=== PATIENT | female | born 1950 | race Caucasian/White ===

== ENCOUNTER 2016-06-28 14:39 | Inpatient (IN) | payer MEDICARE, OTHER ==
[~2016-06-28] VITALS: Ht 162.6 cm; Wt 82.1 kg
[2016-06-29] MEDS ORDERED: LEVO100T5 PO (13:20)
[2016-06-29] MEDS ORDERED: PROZ40CA PO (13:20)
[2016-06-29] MEDS ORDERED: RANI150T PO (13:20)
[2016-06-29] MEDS ORDERED: LAMO25TA PO (13:20)
[2016-06-29] MEDS ORDERED: HYDR-3580 PO (13:20)
[2016-06-29] MEDS ORDERED: LAMO200T PO (13:20)
[2016-06-29] MEDS ORDERED: LORA1TAB12 PO (13:20)
[2016-06-29] MEDS ORDERED: XOPEAER4 INH (13:25)
[2016-06-29] MEDS ORDERED: ADVA250A INH (13:25)
[2016-07-02] MEDS ORDERED: PHENYLEPH/NS 1000 MCG/10 ML SYR IV ONE (12:00)
[2016-07-02] MEDS ORDERED: NEOSTIGMINE 3 MG/3 ML SYR IV ONE (12:00)
[2016-07-02] MEDS ORDERED: ONDANSETRON HCL 4 MG/2 ML VIAL IV PUSH ONE (12:00)
[2016-07-02] MEDS ORDERED: PROPOFOL 200 MG/20 ML AMP IV ONE (12:00)
[2016-07-02] MEDS ORDERED: ePHEDrine/NS 25 MG/5 ML SYR IV ONE (12:00)
[2016-07-02] MEDS ORDERED: VENTAER INH (12:57)
[2016-07-02 12:59] VITALS: BP 130/83; PULSE 85; RESP 16; TEMP 97.6; O2SAT 99
[2016-07-02] MEDS ORDERED: ceFAZolin 2 GM PREMIX 50 ML IV SCH (13:00)
[2016-07-02] MEDS ORDERED: CHLORHEXIDINE GLUCONATE 4% SOLN 120 ML BTL TOP SCH (13:00)
[2016-07-02] MEDS ORDERED: SODIUM CHLORID 0.9% 500 ML IV SCH (13:30)
[2016-07-02] MEDS ORDERED: METOPROLOL TARTRATE 25 MG TAB PO PRN (13:30)
[2016-07-02] MEDS ORDERED: INSULIN HUMAN REGULAR 1,000 UNITS/10 ML VIAL SQ PRN (13:30)
[2016-07-02] MEDS ORDERED: LACTATED RINGER'S 1000 ML IV SCH (13:30)
[2016-07-02] MEDS ORDERED: ACETAMINOPHEN 1000 MG/100 ML VIAL IV ONE (13:40)
[2016-07-02] MEDS ORDERED: MIDAZOLAM HCL 2 MG/2 ML VIAL ONE (14:39)
[2016-07-02] MEDS ORDERED: DICLOFENAC SODIUM 37.5 MG/ML VIAL IV PUSH ONE (14:44)
[2016-07-02] MEDS ORDERED: GENTAMICIN SULFATE 80 MG/2 ML VIAL ONE (14:47)
[2016-07-02] MEDS ORDERED: Post-op Orders (for Pharmacy) MISC XX ONE (16:15)
[2016-07-02] MEDS ORDERED: ALBUTEROL SULFATE 90 MCG/ACT HFA 8 GM INHALER INH PRN (16:15)
[2016-07-02] MEDS ORDERED: SODIUM CHLORIDE 0.9% FLUSH 5 ML FLUSH IVF PRN (16:15)
[2016-07-02] MEDS ORDERED: BEDSIDE COMMODE1 MI1 (16:22)
--- NOTE | 2016-07-02 16:24 | HHI.FF ---
Face to Face Verification Diagnosis: (1) Femoral neck fracture Physical Therapy Gait training, Transfer training, bed to chair Hip: Hip fracture, Other (20% wt bearing right lower extremity ), Protocol: Right Nursing RN Days per Week: 3 x Week(s): 2 Nursing: Dressing changes (clean incision with alcohol and apply dry sterile dressing ) Additional Instructions Pt/INR q Saturday and , call or text results to Dulce [phone] I have seen patient Mihaela Alexandra on 07/02/16. My clinical findings support the need for the requested home health care services because: High risk of falls I certify that my clinical findings support that this patient is homebound because: Post-op weakness Unsteady gait/balance Carlos Strange MD Jul 02, 2016 16:23
--- NOTE | 2016-07-02 16:26 | RADRPT ---
EXAM DATE/TIME: 07/02/2016 15:19 [facility] COMPARISON: No previous studies available for comparison. INDICATIONS : Right hip pain Hardware placement MEDICAL HISTORY : None. SURGICAL HISTORY : None. ENCOUNTER: Initial ACUITY: 1 day PAIN SCORE: Non-responsive. LOCATION: Right Hip FINDINGS: Two cortical lag screws are seen bridging the femoral neck. Alignment is anatomic. CONCLUSION: Anatomic alignment. Emiliano Emanuel MD FACR on July 02, 2016 at 16:13 Board Certified Radiologist. This report was verified electronically.
[2016-07-02] MEDS ORDERED: fentaNYL CITRATE 250 MCG/5 ML AMP ONE (16:37)
[2016-07-02] MEDS ORDERED: DO NOT ADM ANY ANTICOAGULANT DRUGS XX PRN (16:38)
[2016-07-02] MEDS ORDERED: *HYDROmorphone PF 1 MG VIAL PERIprocedural Use ONLY ONE ×3 (16:38→17:17)
[2016-07-02] MEDS ORDERED: LACTATED RINGER'S 1000 ML INJ 1,000 ML IV SCH (17:00)
[2016-07-02] MEDS ORDERED: ALUMINUM/MAGNESIUM/SIMETH 30 ML CUP PO PRN (17:00)
[2016-07-02] MEDS ORDERED: ONDANSETRON HCL 4 MG/2 ML VIAL IVP PRN (17:00)
[2016-07-02] MEDS ORDERED: ACETAMINOPHEN/HYDROcodone 325 MG/7.5 MG TAB PO PRN (17:00)
[2016-07-02 18:07] VITALS: BP 94/69; PULSE 90; RESP 18; TEMP 96.8; O2SAT 100
[2016-07-02] MEDS: HYDROmorphone HCL PF 2 MG/ML VIAL IV PRN (19:03)
[2016-07-02 19:22] VITALS: O2SAT 100
[2016-07-02] MEDS: SODIUM CHLORIDE 0.9% FLUSH 5 ML FLUSH IVF SCH (20:19)
[2016-07-02] MEDS: FAMOTIDINE 20 MG TAB PO SCH (20:19)
[2016-07-02] MEDS: BUDESONIDE-FORMOTEROL 160/4.5 MCG INHALER INH SCH (20:20)
[2016-07-02] MEDS ORDERED: FLUoxetine HCL 20 MG CAP PO SCH (21:00)
[2016-07-02] MEDS ORDERED: LORazepam 1 MG TAB PO SCH (21:00)
[2016-07-02] MEDS: ACETAMINOPHEN/HYDROcodone 325 MG/7.5 MG TAB PO PRN (23:27)
[2016-07-03] VITALS: BP 115/77; PULSE 87; RESP 16; TEMP 96.7; O2SAT 99
[2016-07-03] MEDS: HYDROmorphone HCL PF 2 MG/ML VIAL IV PRN (01:26)
[2016-07-03] MEDS: ACETAMINOPHEN/HYDROcodone 325 MG/7.5 MG TAB PO PRN ×3 (03:59→13:10)
[2016-07-03 04:00] VITALS: BP 103/74; PULSE 95; RESP 17; TEMP 97.3; O2SAT 96
[2016-07-03] MEDS ORDERED: LEVOTHYROXINE SODIUM 100 MCG TAB PO SCH (06:00)
[2016-07-03 06:16] LABS: INTERNATIONAL NORMALIZED RATIO 1.2 RATIO; PROTHROMBIN TIME - PATIENT 13.8 SEC (9.8-11.6)
--- NOTE | 2016-07-03 07:16 | PD.ORT.PN ---
Subjective Subjective Remarks POD#1 R Hip femoral neck fx No sob,no chest pain Expained to pt operative findings Pt wants to go home today Objective Vitals Vital Signs Date Time Temp Pulse Resp B/P Pulse Ox O2 Delivery O2 Flow Rate FiO2 07/03/16 04:00 97.3 95 17 103/74 96 07/03/16 00:00 96.7 87 16 115/77 99 07/02/16 19:22 100 Nasal Cannula 2.00 07/02/16 18:07 96.8 90 18 94/69 100 07/02/16 17:30 97.7 93 16 136/80 97 Nasal Cannula 2 07/02/16 17:15 92 13 136/83 97 07/02/16 17:00 92 12 162/93 98 07/02/16 16:45 97 12 143/96 96 Nasal Cannula 2 07/02/16 16:31 97.1 99 18 154/93 94 Nasal Cannula 2 07/02/16 12:59 97.6 85 16 130/83 99 I/O 07/02/16 07/02/16 07/02/16 07/03/16 07/03/16 07/03/16 07:00 15:00 23:00 07:00 15:00 23:00 Intake Total 240 ml 360 ml Balance 240 ml 360 ml Intake Oral 240 ml 360 ml # Voids 0 3 # Bowel Movements 0 0 Other Results Laboratory Tests Test 07/03/16 05:44 Prothrombin Time 13.8 SEC (9.8-11.6) Prothromb Time International 1.2 RATIO Ratio Objective Remarks N/V intact Neg jeronimo's sighn;no calf tenderness Assessment & Plan Assessment and Plan Ortho stable D/C home today HHC nursing/PT Coumadin,TEDS,sequentials for DVT prophylaxsis PT R LE 20% WBA Carlos Strange MD Jul 03, 2016 07:16
[2016-07-03 08:00] VITALS: BP 103/69; PULSE 92; RESP 20; TEMP 96.5; O2SAT 93
[2016-07-03 08:15] VITALS: O2SAT 99
[2016-07-03] MEDS ORDERED: lamoTRIgine 25 MG TAB PO SCH (09:00)
[2016-07-03] MEDS: SODIUM CHLORIDE 0.9% FLUSH 5 ML FLUSH IVF SCH (09:00)
[2016-07-03] MEDS ORDERED: lamoTRIgine 100 MG TAB PO SCH (09:00)
[2016-07-03] MEDS: FAMOTIDINE 20 MG TAB PO SCH (09:12)
[2016-07-03] MEDS: BUDESONIDE-FORMOTEROL 160/4.5 MCG INHALER INH SCH (09:13)
[2016-07-03] MEDS ORDERED: NORC5TAB PO (10:54)
[2016-07-03] MEDS ORDERED: COUM2TAB PO (10:58)
[2016-07-03 12:00] VITALS: BP 104/76; PULSE 96; RESP 20; TEMP 97.9; O2SAT 93
[2016-07-03] MEDS ORDERED: WARFARIN SOD 5 MG TAB PO SCH ×2 (13:00→16:00)
[2016-07-03] MEDS ORDERED: DOCUSATE SODIUM 100 MG CAP PO SCH (21:00)
[2016-07-04] MEDS ORDERED: WARFARIN SOD 5 MG TAB PO SCH (16:00)
--- NOTE | 2016-07-06 06:11 | MP ---
cc: EZEQUIEL MULLIGAN M.D., CHRISTOPHER DATE OF SURGERY 07/02/2016 PREOPERATIVE DIAGNOSIS Right hip femoral neck fracture. POSTOPERATIVE DIAGNOSIS Right hip femoral neck fracture. PROCEDURE Right hip femoral neck fracture open treatment internal fixation. SPECIMEN None ESTIMATED BLOOD LOSS Minimum COMPLICATIONS None ANESTHESIA General DRAINS None CONDITION Stable PLAN OF ACTIVITY As per orders. PROCEDURE My fundraising assistant Dulce Sharpe PA-C was present for the entire surgical case. She was medically necessary for the entire case because of the complexity of the case and to facilitate the performance of the procedure. The SEED PRODUCTION FIELD SUPERVISOR at the back table not a skill set for this case to manipulate the instruments e.g. the multiple different types of soft tissue retractors and permanent implants. The patient brought into the operating room, had satisfactory anesthesia by the Department of Anesthesia. The patient was placed onto the fracture table. All pressure points were well-padded. The right hip and lower extremity was prepped, draped in the usual sterile manner. A small lateral exposure to the hip was made. All bleeders were individually coagulated. Dissection was carried through the skin and subcutaneous tissue down to the fascia logan. This was incised longitudinally. A muscle splitting incision made in the vastus lateralis. Using the Synthes AO 6.5 mm cancellous screws were used for internal fixation. Each screw was drilled. Each screw was then tapped. Appropriate length screws were inserted. This was all done under fluoroscopic guidance in AP and lateral plane. The fracture was found to be anatomically reduced in a satisfactory position of the internal fixation. The wound was irrigated with copious amounts of sterile saline antibiotic solution. The wound itself was dry. The vastus lateralis was closed in layers with #2 Tycron suture. The fascia logan was closed in layers using #2 Tycron suture. Subcutaneous tissues closed in layers with 2-0 Vicryl. Skin was approximated with running subcuticular 2-0 nylon suture. Xeroform gauze, sterile dressing applied. The patient tolerated the procedure well and arrived in the Recovery Room in stable and satisfactory condition. MD MELINDA Balderas/KASHMIR /4:16 PM /6:01 AM
== END 2016-07-03 13:42 | disposition home health service (06) | DRG 482 ==
LOC: HSDI 07-02 11:53 → EDUNIT# 07-02 15:30 → EDSTATUS 07-02 15:30 → N06B 07-02 17:42
PROVIDERS: ADMIT Orthopaedic Surgery Orthopaedic Surgery of the Spine; ATTEND Orthopaedic Surgery Orthopaedic Surgery of the Spine
PROC: 0QS604Z Reposition Right Upper Femur with Internal Fixation Device, Open Approach (ICD-10-PCS; principal; 2016-07-02 14:50)
DX: S72.001A Fracture of unspecified part of neck of right femur, initial encounter for closed fracture (principal); E03.9 Hypothyroidism, unspecified; K21.9 Gastro-esophageal reflux disease without esophagitis; X58.XXXA Exposure to other specified factors, initial encounter; Y93.9 Activity, unspecified; Y92.9 Unspecified place or not applicable; Y99.9 Unspecified external cause status; M96.1 Postlaminectomy syndrome, not elsewhere classified; M16.0 Bilateral primary osteoarthritis of hip; M51.36 Other intervertebral disc degeneration, lumbar region; J45.909 Unspecified asthma, uncomplicated; Z87.891 Personal history of nicotine dependence; Z85.3 Personal history of malignant neoplasm of breast; R94.31 Abnormal electrocardiogram [ECG] [EKG]
CPT/HCPCS: 36415; 73502; 76000; 80048; 85025; 85610; 93005; 93306; 94150; C1713; J0131; J0690; J1130; J1170; J1580; J2250; J2370; J2405; J2710; J3010; J7120

== ENCOUNTER → 2016-06-29 | Outpatient (CLI) | payer MEDICARE, OTHER ==
[~2016-06-29] MED LIST: ADVA250A INH; BEDSIDE COMMODE1 MI1; COUM2TAB PO; HYDR-3580 PO; LAMO200T PO; LAMO25TA PO; LEVO100T5 PO; LORA1TAB12 PO; NORC5TAB PO; PROZ40CA PO; RANI150T PO; VENTAER INH; XOPEAER4 INH
--- NOTE | 2016-06-29 19:00 | EC ---
Study Study Date:06/29/2016 STUDY CONCLUSIONS SUMMARY LEFT VENTRICLE: The cavity size was normal. Wall thickness was normal. Systolic function was normal. The estimated ejection fraction was 60%. Wall motion was normal; there were no regional wall motion abnormalities. If LV function is below 40, please consider prescribing an ACEI or ARB or document rationale for non-use. PROCEDURE DATA STUDY STATUS: Elective. Procedure: Transthoracic echocardiography. Image quality was good. Scanning was performed from the parasternal, apical, and subcostal acoustic windows. Study completion: The patient tolerated the procedure well. Transthoracic echocardiography. M-mode, complete 2D, complete spectral Doppler, and color Doppler. Height: Height: 64in. Weight: Weight: 169.6lb. Body mass index: BMI: 29.2kg/m^2. Body surface area: BSA: 1.83m^2. Patient status: Inpatient. CARDIAC ANATOMY LEFT VENTRICLE: The cavity size was normal. Wall thickness was normal. Systolic function was normal. The estimated ejection fraction was 60%. Wall motion was normal; there were no regional wall motion abnormalities. AORTIC VALVE: Trileaflet; normal thickness leaflets. Doppler: Transvalvular velocity was within the normal range. There was no stenosis. No regurgitation. Valve area: 1.82cm^2(VTI). Indexed valve area: 0.99cm^2/m^2 (VTI). Valve area: 2.02cm^2 (Vmax). Indexed valve area: 1.1cm^2/m^2 (Vmax). Mean gradient: 2mm Hg (S). AORTA: Aortic root: The aortic root was normal in size. MITRAL VALVE: Structurally normal valve. Doppler: Transvalvular velocity was within the normal range. There was no evidence for stenosis. No regurgitation. LEFT ATRIUM: The atrium was normal in size. RIGHT VENTRICLE: The cavity size was normal. Wall thickness was normal. PULMONIC VALVE: Doppler: Transvalvular velocity was within the normal range. There was no evidence for stenosis. No regurgitation. TRICUSPID VALVE: Structurally normal valve. Doppler: Transvalvular velocity was within the normal range. No regurgitation. PULMONARY ARTERY: The main pulmonary artery was normal-sized. Systolic pressure was within the normal range. RIGHT ATRIUM: The atrium was normal in size. PERICARDIUM: There was no pericardial effusion. SYSTEMIC VEINS: Inferior vena cava: The vessel was normal in size. Patient weight: 169.6lb _Ejection fraction:_ 65-75% _Fractional shortening:_ 32% up to 5Kg 5-11.5Kg 11.6-22.9Kg 23-45Kg 45-57Kg Aortic Root 7-13 <17 13-22 17-27 17-27 LA diam 6-13 <23 24-38 33-47 37-40 RVID 10-17 7-15 7-15 7-18 8-17 LVIDd 12-22 <32 24-38 33-47 37-40 LVPW 2-4 3-6 5-7 6-8 7-8 IVS 2-4 3-6 5-7 6-8 7-8 BASIC MEASUREMENTS ADULT NORMAL Left ventricle LV internal dimension, ED, chordal 44.2 mm 43-52 level, PLAX LV internal dimension, ES, chordal 32.9 mm 23-38 level, PLAX Fractional shortening, chordal level, *26 % >29 PLAX LV posterior wall thickness, ED 7.96 mm IVS/LVPW ratio, ED 1 <1.3 Ventricular septum Septal thickness, ED 7.97 mm Aortic valve Leaflet separation 26 mm 15-26 Aorta Root diameter, ED 39 mm Left atrium Anterior-posterior dimension 34 mm Anterior-posterior dimension index 1.86 cm/m^2 <2.2 BASIC MEASUREMENTS ADULT NORMAL Aortic valve Leaflet separation 26 mm 15-26 DOPPLER MEASUREMENTS ADULT NORMAL Aortic valve Peak velocity, S 84.3 cm/s Mean velocity, S 60.1 cm/s VTI, S 13 cm Mean gradient, S 2 mm Hg Valve area, VTI 1.82 cm^2 Valve area index, VTI 0.99 cm^2/m^2 Valve area, Vmax 2.02 cm^2 Valve area index, Vmax 1.1 cm^2/m^2 Mitral valve Peak E-wave velocity 40.5 cm/s Peak A-wave velocity 70.1 cm/s Deceleration time *120 ms 150-230 Peak E/A ratio 0.6 Pulmonic valve Peak velocity, S 56.4 cm/s LEGEND: Mean values are shown as u=mean value. Asterisk (*) navarro values outside specified normal range. Prepared and signed by Lorna Holland [id number]
== END ==
LOC: HCAV 17:07
PROVIDERS: ATTEND Orthopaedic Surgery Orthopaedic Surgery of the Spine
DX: R94.31 Abnormal electrocardiogram [ECG] [EKG] (principal)
CPT/HCPCS: 93306

== ENCOUNTER → 2016-06-29 | Outpatient (CLI) | payer MEDICARE, OTHER ==
[2016-06-29 13:14] LABS: AUTOMATED NEUTROPHIL # 6.7 TH/MM3 (1.8-7.7); BASOPHIL # 0.1 TH/MM3 (0-0.2); BASOPHIL % 0.6 % (0.0-2.0); EOSINOPHIL # 0.3 TH/MM3 (0-0.4); EOSINOPHIL % 2.7 % (0.0-4.0); HEMO FLAGS DIFF FINAL; LYMPH % 22.6 % (9.0-44.0); LYMPHOCYTE # 2.3 TH/MM3 (1.0-4.8); MEAN CELL VOLUME 92.1 FL (80.0-100.0); MEAN CORPUSCULAR HEMOGLOBIN 32.3 PG (27.0-34.0); MONO % 8.7 % (0.0-8.0); NEUT % 65.4 % (16.0-70.0); PLATELET COUNT 298 TH/MM3 (150-450); RED BLOOD COUNT 4.45 MIL/MM3 (4.00-5.30); RED CELL DISTRIBUTION WIDTH 13.7 % (11.6-17.2); WHITE BLOOD COUNT 10.2 TH/MM3 (4.0-11.0)
[2016-06-29 13:50] LABS: BICARBONATE 30.4 MEQ/L (21.0-32.0); POTASSIUM 4.8 MEQ/L (3.5-5.1)
--- NOTE | 2016-06-29 16:05 | EKG ---
Date Performed: 06/29/2016 Time Performed: 13:09:08 PTAGE: 66 years EKG: Sinus rhythm LOW QRS VOLTAGE IN PRECORDIAL LEADS POSSIBLE RIGHT VENTRICULAR CONDUCTION DELAY INFERIOR MYOCARDIAL INFARCTION, OF INDETERMINATE AGE WITH POSTERIOR EXTENSION MODERATE T-WAVE ABNORMALITY, CONSIDER ANTER IOR ISCHEMIA ABNORMAL ECG NO PREVIOUS TRACING DOCTOR: Shahbaz Clifton Interpretating Date/Time 06/29/2016 16:05:20
== END ==
LOC: CPRE 12:42
PROVIDERS: ATTEND Orthopaedic Surgery Orthopaedic Surgery of the Spine
DX: Z01.810 Encounter for preprocedural cardiovascular examination (principal); Z01.812 Encounter for preprocedural laboratory examination; R94.31 Abnormal electrocardiogram [ECG] [EKG]
CPT/HCPCS: 36415; 80048; 85025; 93005